=== PATIENT | male | born 1995 | race Caucasian/White ===

== ENCOUNTER → 2018-01-23 | Outpatient (CLI) | payer SELFPAY ==
[2018-01-25 08:19] LABS: HBSAG SCREEN Negative (Negative); HEP A AB, IGM Negative (Negative); HEP B CORE AB, IGM Negative (Negative); HEP C VIRUS AB <0.1 (0.0-0.9)
[2018-01-25 12:09] LABS: HIV SCREEN 4TH GENERATION WRFX Non Reactive (Non Reactive)
[2018-01-26 01:11] LABS: CHLAMYDIA TRACHOMATIS, NAA Negative (Negative); NEISSERIA GONORRHOEAE, NAA Negative (Negative)
== END ==
LOC: LAB SHORT 13:19 → LAB 13:19
PROVIDERS: Physician Assistant
DX: N34.1 Nonspecific urethritis (principal)
CPT/HCPCS: 80074; 86592; 87086; 87389; 87491; 87591

== ENCOUNTER 2024-05-20 08:14 | Observation (INO) | payer BC ==
[~2024-05-20] VITALS: Ht 190.5 cm; Wt 96.0 kg
[2024-05-20] VITALS (14 sets, daily range): BP systolic 111–132; BP diastolic 66–85
[2024-05-20] MEDS ORDERED: NS 1,000 ML IV SCH ×2 (09:00→18:40)
[2024-05-20 09:09] LABS: BASOPHILS ABSOLUTE AUTO 0.03 K/mm3 (0.00-0.23); BASOPHILS PERCENT AUTO 0 % (0-2); EOSINOPHILS ABSOLUTE AUTO 0.06 K/mm3 (0.00-0.68); EOSINOPHILS PERCENT AUTO 0 % (0-6); Hematocrit 43.1 % (37.0-53.0); Hemoglobin 15.4 g/dL (13.5-17.5); IMMATURE GRAN ABSOLUTE AUTO 0.05 K/mm3 (0.00-0.10); IMMATURE GRAN PERCENT AUTO 0 % (0-1); LYMPHOCYTES ABSOLUTE AUTO 1.65 K/mm3 (0.84-5.20); LYMPHOCYTES PERCENT AUTO 12 % (21-46); MONOCYTES PERCENT AUTO 8 % (4-13); Mean Corpuscular HGB 30.9 pg (26.0-34.0); Mean Corpuscular HGB Conc 35.7 g/dL (31.5-36.5); Mean Corpuscular Volume 87 fL (80-100); Mean Platelet Volume 9.4 fL (9.1-12.4); NEUTROPHILS ABSOLUTE AUTO 10.58 K/mm3 (1.96-9.15); NEUTROPHILS PERCENT AUTO 79 % (41-73); Platelet Count 190 K/mm3 (150-400); RDW Coefficient Variation 12.4 % (11.7-14.2); Red Blood Cell Count 4.98 M/mm3 (4.30-5.90); White Blood Cell Count 13.37 K/mm3 (4.00-11.30)
[2024-05-20 09:37] LABS: Albumin, Blood 4.2 g/dL (3.4-5.0); Albumin/Globulin Ratio 1.3 (0.8-1.8); Bilirubin, Total 0.9 mg/dL (0.1-1.0); Calcium, Blood 9.2 mg/dL (8.5-10.1); Creatinine, Blood 1.13 mg/dL (0.60-1.20); Globulin, Blood 3.2 g/dL (2.2-4.0); Potassium, Blood 4.1 mmol/L (3.5-5.5); Total Protein, Blood 7.4 g/dL (6.4-8.2)
[2024-05-20 10:31] LABS: Source, Urine Clean Catch
[2024-05-20 10:34] LABS: Appearance, Urine Clear (Clear); Bilirubin, Urine Neg (Neg); Blood, Urine Neg (Neg); Color, Urine Yellow (P-Yellow); Glucose Qualitative, Urine Neg (Neg); Ketones, Urine Neg (Neg); Leukocyte Esterase, Urine Neg (Neg); Nitrite, Urine Neg (Neg); Protein, Urine Neg (Neg); Urobilinogen, Urine NORM (Normal)
[2024-05-20] MEDS ORDERED: Piperacillin/Tazobactam Sod 2.25 GM in NS 50 ML IV ONE (10:50)
[2024-05-20] MEDS ORDERED: Ondansetron HCl 2 MG / ML 2ML Vial IV ONE (12:30)
[2024-05-20] MEDS ORDERED: HYDROmorphone HCl/Pf 1MG SYR IV ONE (12:30)
[2024-05-20] MEDS ORDERED: Metoclopramide HCl 5MG / ML 2ML Vial IV ONE (13:30)
[2024-05-20] MEDS ORDERED: Lactated Ringer's 1,000 ML IV ONE (13:39)
[2024-05-20] MEDS ORDERED: Lidocaine HCl 2% 20 ML MDV ONE (14:33)
[2024-05-20] MEDS ORDERED: propofoL 20 ML IV ONE (14:33)
[2024-05-20] MEDS ORDERED: FentaNYL Citrate 50 MCG/ML 2 ML Injection ONE (14:34)
[2024-05-20] MEDS ORDERED: HYDROmorphone HCl/Pf 1MG SYR IV PRN ×2 (14:45→18:40)
[2024-05-20] MEDS ORDERED: Ondansetron HCl 2 MG / ML 2ML Vial IV PRN ×2 (14:45→18:45)
--- NOTE | 2024-05-20 15:02 | NUR ---
PT ARRIVED TO UNIT AT APROX 1443 FROM ER. PT INDEPENDENTLY TX TO BED FROM [facility]. PT REPORTS PAIN 5/6 UPON ARRIVAL TO UNIT. ORDERS OBTAINED FROM DR BLUM FOR 1MG DILAUDID Q4 PRN SEVERE PAIN AND 4MG ZOFRAN Q6 PRN N/V. PT MEDICATED PER EMAR. REPORT GIVEN TO RN ASSUMING CARE AT APROX 1510.
--- NOTE | 2024-05-20 16:19 | NUR ---
PT IN PACU FOR PRE-OP
[2024-05-20] MEDS ORDERED: Midazolam HCl 1MG / ML 2ML Vial ONE (17:01)
[2024-05-20] MEDS ORDERED: Bupivacaine 0.5% HCl 5 MG/ML 30MLVIAL ONE (17:16)
--- NOTE | 2024-05-20 17:35 | NUR ---
SHAVE PREP AND CHLORAHEXADINE WIPE TO ABD. SKIN SHOWS NO SIGNS OF REDNESS OR ABRASIONS
--- NOTE | 2024-05-20 17:44 | NUR ---
NEW ADMIT FOR ACUTE APPY. VSS. PATIENT IS ORIENTED TO ROOM, MEDICATED FOR PAIN. DAY SURGERY STAFF IN TO TAKE PATIENT TO OR. VOIDED AND GOWN IN PLACE. AOX4, IND.
[2024-05-20] MEDS ORDERED: Sugammadex Sodium 200 MG/2ML SDV (100 MG/ML) ONE (18:13)
[2024-05-20] MEDS ORDERED: CeFAZolin Sodium 2,000 MG in NS 100 ML IV SCH (18:20)
[2024-05-20] MEDS ORDERED: Dexamethasone Sod Phos 10 MG/ML 1ML VIAL ONE (18:21)
[2024-05-20] MEDS ORDERED: Ondansetron HCl 2 MG / ML 2ML Vial ONE (18:21)
[2024-05-20] MEDS ORDERED: Ketorolac Tromethamine 30mg Vial ONE (18:21)
[2024-05-20] MEDS ORDERED: Rocuronium Bromide 10 MG/ML 5ML Injection IV ONE (18:21)
[2024-05-20] MEDS ORDERED: FLU VACC TS2024-25(6MOS UP)/PF 45 MCG/0.5 ML SYRINGE IM ONE (18:40)
[2024-05-20] MEDS ORDERED: Zolpidem Tartrate 10 MG Tab PO PRN (18:40)
[2024-05-20] MEDS ORDERED: OxyCODONE HCL 5 MG TAB PO PRN (18:45)
[2024-05-20] MEDS ORDERED: Ketorolac Tromethamine 30mg Vial IV PRN (18:50)
--- NOTE | 2024-05-20 21:14 | NUR ---
UPDATE: PATIENT LEFT LOWER LAP SITE BLEEDING/OOZING A MODERATE AMOUNT. DIRECT PRESSURE HELD FOR ~5 MIN. DRESSING REINFORCED WITH GAUZE PRESSURE DSG. THIS RN PHONED THE PT'S SURGEON, DR. BLUM. RECOMMENDS ICE PACK OVER BLEEDING SITE. ICE PACK APPLIED. PT ASYMPTOMATIC, NO S/S ACUTE DISTRESS AT THIS TIME. ABD SOFT.
[2024-05-21] MEDS ORDERED: Piperacillin/Tazobactam Sod 4.5 GM in NS 100 ML IV SCH
[2024-05-21 05:56] VITALS: BP 109/65
[2024-05-21 07:23] VITALS: BP 113/68
--- NOTE | 2024-05-21 08:22 | NUR ---
ASSESSMENT: PT SLEEPING AT THIS TIME. RESP E/U. BREAKFAST TRAY LEFT AT BEDSIDE. NO SIGNS OF DISTRESS. CALL LIGHT IN REACH. WILL DO FULL ASSESSMENT WHEN PT IS AWAKE AND ALERT.
[2024-05-21] MEDS ORDERED: Enoxaparin 40 MG/0.4 ML SYR SC SCH (09:00)
[2024-05-21] MEDS ORDERED: OXYC10TA19 PO (11:13)
--- NOTE | 2024-05-21 11:35 | NUR ---
DISCHARGE: PT DC TO HOME AT THIS TIME WITH FATHER. PT VERBALIZED UNDERSTANDING OF INSTRUCTIONS, FOLLOW UP AND MEDICATIONS. SCRIPT GIVEN. IV DC'D WNL. PT GIVEN EXTRA DRESSINGS. PT LEFT AMBULATORY TO CAR WITH BELONGINGS.
== END 2024-05-21 11:30 | disposition home or self-care (01) ==
LOC: ER 08:14 → SURS 13:34
PROVIDERS: Student in an Organized Health Care Education/Training Program; ADMIT Surgery
PROC: 0DTJ4ZZ Resection of Appendix, Percutaneous Endoscopic Approach (ICD-10-PCS; principal; 2024-05-20 16:30)
DX: K35.80 Unspecified acute appendicitis (principal)
CPT/HCPCS: 74177; 80053; 81003; 83690; 85025; 96361; 96365; 96375; 99285-25; A9270; G0378; J0690; J1100; J1171; J1885; J2250; J2405; J2543; J2704; J2765; J3010; J7030; J7120; Q9967

== ENCOUNTER → 2025-01-29 | Outpatient (CLI) | payer BC ==
[~2025-01-29] MED LIST: OXYC10TA19 PO
[2025-01-30 13:27] LABS: Chlamydia Trachomatis Urine NOT DETECTED (NOT DETECT); Neisseria Gonorrhoea Urine NOT DETECTED (NOT DETECT)
== END ==
LOC: LAB SHORT 14:30 → LAB 14:30
PROVIDERS: Student in an Organized Health Care Education/Training Program
DX: R82.90 Unspecified abnormal findings in urine (principal)
CPT/HCPCS: 87491; 87591